=== PATIENT | male | born 1975 | race Caucasian/White ===

== ENCOUNTER 2016-09-22 10:56 | Inpatient (IN) | payer MEDICAID ==
[~2016-09-22] VITALS: Ht 167.6 cm; Wt 70.8 kg
[2016-09-22] MEDS ORDERED: SOD CHLORIDE 0.9% 500 ML IV STA (11:19)
[2016-09-22] MEDS ORDERED: LIDOCAINE/MYLANTA 40 ML BTL PO STA (11:19)
[2016-09-22] MEDS ORDERED: morphine 4 MG/ML VIAL IV STA (11:19)
[2016-09-22] MEDS ORDERED: ONDANSETRON 4 MG INJ IV STA ×2 (11:19→12:24)
[2016-09-22] MEDS ORDERED: FAMOTIDINE 20 MG INJ IV STA (11:19)
[2016-09-22] MEDS ORDERED: BELLADONNA/PHENOBARBITAL TAB PO STA (11:19)
--- NOTE | 2016-09-22 11:34 | ERD ---
ER Documentation Chief Complaint Date/Time DATE: 09/22/16 TIME: 11:31 Chief Complaint chest pain radiates to the back and abdominal pain started 2 days ago HPI 41-year-old male no significant past medical history other than GERD who presents to the emergency room with epigastric abdominal pain radiating to the back. The patient describes greater than 1 year of the symptoms that is intermittent and usually exacerbated by eating food. Patient states that most days he has this discomfort however it has been worse over the last several days. He denies any chest pain and I believe this was a communication error at triage. He states the pain is to the epigastrium and left upper quadrant and radiating to the back. He describes it as moderate, constant. He denies any numbness or tingling or other abdominal pain, no hematemesis or melena. No exertional symptoms no pleuritic pain and no shortness of breath. ROS All systems reviewed and are negative except as per history of present illness. Medications Home Meds Reported Medications Omeprazole* (Omeprazole*) 40 Mg Capsule., 40 MG PO DAILY, #30 CAP 09/22/16 FmHx Family History: No coronary disease, No diabetes Physical Exam Vitals Vital Signs Date Time Temp Pulse Resp B/P Pulse Ox O2 Delivery O2 Flow Rate FiO2 09/22/16 13:56 61 13 104/70 100 Room Air 09/22/16 11:22 72 21 117/65 100 Room Air 09/22/16 11:03 98.5 86 22 155/87 100 Physical Exam General: Well developed, well nourished, slightly uncomfortable holding epigastrium Head: Normocephalic, atraumatic. Eyes: Pupils equally reactive, EOM intact ENT: Moist mucous membranes Neck: Supple, no lymphadenopathy Respiratory: Lungs clear bilaterally, no distress Cardiovascular: RRR, no murmurs, rubs, or gallops Abdominal: Soft, very mild epigastric tenderness without rebound or guarding, negative Vegas sign, no tenderness to McBurney's point non-distended, no peritoneal signs, no pulsatile mass : Deferred MSK: No edema, no unilateral swelling, 5/5 strength Neurologic: Alert and oriented, moving all extremities, normal speech, no focal weakness, no cerebellar signs Skin: No rash Psych: Normal mood Result Diagram: 5/20/17 0922 5/20/17 0922 Results 24 hrs Laboratory Tests Test 09/22/16 09:22 White Blood Count 3.910^3/ul Red Blood Count 5.0410^6/ul Hemoglobin 15.2g/dl Hematocrit 44.2% Mean Corpuscular Volume 87.7fl Mean Corpuscular Hemoglobin 30.2pg Mean Corpuscular Hemoglobin Concent 34.4g/dl Red Cell Distribution Width 11.9% Platelet Count 83092^3/UL Mean Platelet Volume 10.1fl Neutrophils % 48.6% Lymphocytes % 42.3% Monocytes % 7.3% Eosinophils % 1.3% Basophils % 0.5% Nucleated Red Blood Cells % 0.0/100WBC Neutrophils # 1.910^3/ul Lymphocytes # 1.610^3/ul Monocytes # 0.310^3/ul Eosinophils # 0.110^3/ul Basophils # 0.010^3/ul Nucleated Red Blood Cells # 0.010^3/ul Sodium Level 140mmol/L Potassium Level 3.7mmol/L Chloride Level 102mmol/L Carbon Dioxide Level 25mmol/L Anion Gap 17 Blood Urea Nitrogen 9mg/dl Creatinine 0.86mg/dl Glucose Level 87mg/dl Calcium Level 9.6mg/dl Total Bilirubin 1.0mg/dl Direct Bilirubin 0.00mg/dl Indirect Bilirubin 1.0mg/dl Aspartate Amino Transf (AST/SGOT) 22IU/L Alanine Aminotransferase (ALT/SGPT) 34IU/L Alkaline Phosphatase 65IU/L Troponin I < 0.012ng/ml Total Protein 7.3g/dl Albumin 4.6g/dl Globulin 2.70g/dl Albumin/Globulin Ratio 1.70 Lipase 87U/L Current Medications Medications (Trade) Dose Ordered Sig/Subhash Route PRN Reason Start Time Stop Time Status Last Admin Dose Admin Sodium Chloride (NS) 500 ml @ 500 mls/hr Q1H STAT IV 09/22/16 11:19 09/22/16 12:18 DC 09/22/16 11:34 Morphine Sulfate (morphine) 4 mg ONCE STAT IV 09/22/16 11:19 09/22/16 11:23 DC 09/22/16 11:34 Ondansetron HCl (Zofran Inj) 4 mg ONCE STAT IV 09/22/16 11:19 09/22/16 11:23 DC 09/22/16 11:33 Famotidine (Pepcid Iv) 20 mg ONCE STAT IV 09/22/16 11:19 09/22/16 11:23 DC 09/22/16 11:34 Miscellaneous Medication (Gi Cocktail (2)) 40 ml ONCE STAT PO 09/22/16 11:19 09/22/16 11:23 DC 09/22/16 11:34 Belladonna/ Phenobarbital () 2 tab ONCE STAT PO 09/22/16 11:19 09/22/16 11:23 DC 09/22/16 11:35 Hydromorphone HCl (Dilaudid) 1 mg ONCE STAT IV 09/22/16 12:24 09/22/16 12:26 DC 09/22/16 12:42 Ondansetron HCl (Zofran Inj) 4 mg ONCE STAT IV 09/22/16 12:24 09/22/16 12:26 DC 09/22/16 12:42 IV Flush 10 ml 10 ml STK-MED ONCE .ROUTE 09/22/16 12:56 09/22/16 12:57 DC Sodium Chloride (NS) 100 ml @ ud STK-MED ONCE .ROUTE 09/22/16 12:56 09/22/16 12:57 DC Iohexol (Omnipaque 300mg/ ml) 150 ml STK-MED ONCE .ROUTE 09/22/16 12:56 09/22/16 12:57 DC Ondansetron HCl (Zofran Inj) 4 mg ER BRIDGE PRN IV NAUSEA AND/OR VOMITING 09/22/16 15:30 09/23/16 15:29 Acetaminophen (Tylenol Tab) 650 mg ER BRIDGE PRN PO MILD PAIN/FEVER 09/22/16 15:30 09/23/16 15:29 Procedures/MDM EKG, MONITORS, & DIAGNOSTIC IMAGING: EKG: I reviewed and interpreted a 12-lead EKG. Rhythm: Normal sinus rhythm Ectopy: None Intervals: No abnormalities ST segments: No elevations or depressions T waves: No contiguous inversions Chest x-ray: I reviewed and interpreted a 1 view of the chest Mediastinum: No enlargement Cardiac silhouette: No cardiomegaly Airspace: Clear lung nazario bilaterally without evidence of pneumothorax Bones: No evidence of fracture CTA IMPRESSION: 1. No evidence of aortic dissection or aortic aneurysm. 2. 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 Recommend coronary catheterization for further evaluation. The findings were discussed with Dr. Aramis Jaeger on 09/22/2016 at 02:00 p.m. RPTAT: [facility] LAB INTERPRETATION: Negative troponin MEDICAL DECISION MAKING: The patient presents with greater than 1 year of epigastric abdominal pain radiating to the back that is usually postprandial. Worsening symptoms in a similar location and character today. The patient denies any chest pain. He denies any exertional symptoms. There is an error in triage documentation patient does not have chest pain. I do not believe this is cardiogenic in nature. The patient has no signs or symptoms concerning for acute vascular catastrophe such as aortic dissection or aneurysm. The patient has no clinical signs of perforated ulcer or perforated viscus, no indication for CT imaging. An upright chest would be appropriate. This is most consistent with likely peptic ulcer disease, dyspepsia. Consider possible pancreatitis of the patient states that he is not a drinker. The patient will benefit from GI cocktail, laboratory testing and reassessment with serial abdominal exams. ER COURSE: The patient still had persistent symptoms and pain. Some of the same to be behavioral and only when the family was around. However given his pain out of proportion CTA of the chest abdomen and pelvis was ordered. The patient CTA revealed an aneurysm of a portion of the LAD with possible fistula with the pulmonary system. It is unclear whether this is truly causing the patient's symptoms however this abnormality warrants further investigation and likely interventional cardiology consultation. I spoke to Dr. Mendoza, on-call for interventional cardiology. He thinks this is unlikely to be related to the patient's symptoms and does not require emergent intervention. However, given the findings at this time, the patient's persistence of symptoms I believe inpatient hospitalization for formal cardiology consultation and evaluation would be most appropriate. The patient is agreeable. His symptoms are improving. At this time I do not believe there is indication for aspirin. The risks may outweigh the benefits. Continue to monitor. I kept the patient and/or family informed of laboratory and diagnostic imaging results throughout the emergency room course. DISPOSITION PLAN: Telemetry admission for evaluation of coronary artery aneurysm CONSULTATION: Accepting care team and consultations: I discussed the current laboratory data, diagnostic imaging and emergency care provided. Admitting team: Dr. Gant Admitting team indication: Insurance directed Departure Diagnosis: Primary Impression: Epigastric abdominal pain Additional Impression: Coronary artery aneurysm Condition: Stable ARAMIS JAEGER MD September 22, 2016 11:34
[2016-09-22 11:40] LABS: ADD SCAN DIFF NO
[2016-09-22 11:45] LABS: BASOPHILS % 0.5 % (0.0-2.0); EOSINOPHILS # 0.1 10^3/ul (0.0-0.5); EOSINOPHILS % 1.3 % (0.0-7.0); HEMATOCRIT 44.2 % (42.0-52.0); HEMOGLOBIN 15.2 g/dl (14.0-18.0); LYMPHOCYTES # 1.6 10^3/ul (0.8-2.9); LYMPHOCYTES % 42.3 % (15.0-51.0); MEAN CORPUSCULAR HEMOGLOBIN 30.2 pg (29.0-33.0); MEAN CORPUSCULAR HGB CONC 34.4 g/dl (32.0-37.0); MEAN CORPUSCULAR VOLUME 87.7 fl (82.0-101.0); MEAN PLATELET VOLUME 10.1 fl (7.4-10.4); MONOCYTE # 0.3 10^3/ul (0.3-0.9); MONOCYTES % 7.3 % (0.0-11.0); NEUTROPHIL # 1.9 10^3/ul (1.6-7.5); NEUTROPHILS % 48.6 % (39.0-77.0); PLATELET COUNT 191 10^3/UL (140-415); RED BLOOD COUNT 5.04 10^6/ul (4.70-6.10); RED CELL DISTRIBUTION WIDTH 11.9 % (11.5-14.5); WHITE BLOOD COUNT 3.9 10^3/ul (4.8-10.8)
--- NOTE | 2016-09-22 11:51 | RADRPT ---
PROCEDURE: XR Chest. CLINICAL INDICATION: Pain TECHNIQUE: Single frontal chest x-ray. COMPARISON: None. FINDINGS: No acute infiltrate, pleural effusion or pneumothorax is identified. Cardiomediastinal silhouette i s within normal limits. The osseous structures are unremarkable. IMPRESSION: 1. No evidence of acute cardiopulmonary process. RPTAT: QQ .Modesto Ruelas MD, MD Date Time Electronically viewed and signed by .Modesto Ruelas MD, on 09/22/2016 11:51 .R/
[2016-09-22 12:05] LABS: ALBUMIN 4.6 g/dl (3.3-4.9); CHLORIDE 102 mmol/L (97-110)
[2016-09-22 12:06] LABS: POTASSIUM 3.7 mmol/L (3.5-5.1); SODIUM 140 mmol/L (135-144)
[2016-09-22 12:08] LABS: ALKALINE PHOSPHATASE 65 IU/L (42-121); ANION GAP 17 (8-16); ASPARTATE AMINO TRANSFERASE 22 IU/L (15-46); BLOOD UREA NITROGEN 9 mg/dl (7-20); CARBON DIOXIDE 25 mmol/L (21-31); CREATININE 0.86 mg/dl (0.61-1.24); GLUCOSE 87 mg/dl (70-220); TOTAL PROTEIN 7.3 g/dl (6.1-8.1)
[2016-09-22 12:09] LABS: ALANINE AMINOTRANSFERASE 34 IU/L (13-69); CALCIUM 9.6 mg/dl (8.4-10.2)
[2016-09-22 12:19] LABS: TROPONIN-I < 0.012 ng/ml (0.00-0.12)
[2016-09-22] MEDS ORDERED: HYDROmorphONE 1 MG/ML SYG IV STA (12:24)
[2016-09-22] MEDS ORDERED: OMEP40CA6 PO (12:44)
[2016-09-22] MEDS ORDERED: IOHEXOL 300MG/ML 150 ML BTL ONE (12:56)
[2016-09-22] MEDS ORDERED: SOD CHLORIDE 0.9% 100 ML ONE (12:56)
--- NOTE | 2016-09-22 14:13 | RADRPT ---
PROCEDURE: CT angiogram chest, abdomen, and pelvis. CLINICAL INDICATION: Chest/back pain TECHNIQUE: CT angiogram of the thoracic and abdominal aorta was acquired in the early angiographic phase after the uneventful administration of 120 ml Omnipaque 300. One or more of the following d ose reduction techniques were used: Automated exposure control, adjustment of the mA and/or kV acco rding to patient size, use of iterative reconstruction technique. The total exam CTDI = 14.08, 8.4 mGy and the DLP equals 733.21 mGy-cm. COMPARISON: None available FINDINGS: Vascular: Cardiac: There are dilated conal branches off of the left and right coronary artery . This is most focally prominent on the left with a 1.5 x 1.2 x 1.4 cm focal aneurysmal dilatation of a conal branc h of the left anterior descending artery with possible associated fistula to the main pulmonary funmi ry (imaging 56 of series 3 and image 33 of series 601). Thoracic aorta: Normal in caliber. No evidence of dissection or aneurysm. Abdominal aorta: Normal in caliber. No evidence of dissection or aneurysm. The celiac, superior mesenteric, inferior mesenteric arteries: Patent without stenosis. Renal arteries: Single, widely patent renal arteries bilaterally. Large collateral seen: None. Visualized portions of the femoral arteries are also unremarkable. Chest: The lungs are clear. No focal opacification, effusion, pneumothorax, edema, or nodules are seen. M inimal scarring only is seen in the lung bases bilaterally. There is no acute infiltrate. The medi astinum is unremarkable without evidence for mass or lymphadenopathy. The heart size is normal wi thout evidence for pericardial thickening or effusion. The axillary regions, subpectoral regions, and supraclavicular regions are all unremarkable. Imagin g obtained through the upper abdomen reveals no acute abnormality. The surrounding osseous structur es are remarkable for mild degenerative spondylosis of the spine. No osteolytic or osteoblastic le odalys is detected. Abdomen: Lung bases are clear. Heart is normal in size without pericardial thickening or effusion. Liver is normal in size and attenuation without focal lesion on this angiographic phase. Spleen is normal in size. Gallbladder Pancreas and adrenal glands are unremarkable. Kidneys show cortical medullary differentiation. There is no hydronephrosis. No calculi are seen. There is no dilated bowel. Appendix is unremarkable. There is no fluid or thickening of the small bowel mesentery. No retroperitoneal mass or lymphadenopathy. The warren hepatis region is clear. No fluid collection is identified. Pelvis: Pelvic organs are unremarkable. The pelvic sidewalls and inguinal regions are clear. No free fluid is seen. There is a small fat-containing left inguinal hernia. IMPRESSION: 1. No evidence of aortic dissection or aortic aneurysm. 2. 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 Recommen d coronary catheterization for further evaluation. The findings were discussed with Dr. Aramis Jaeger on 09/22/2016 at 02:00 p.m. RPTAT: JJ .Alec Field MD, Date Time Electronically viewed and signed by .Alec Field MD, on 09/22/2016 14:12 .A/
[2016-09-22] MEDS ORDERED: ACETAMINOPHEN 325 MG TAB PO PRN (15:30)
[2016-09-22] MEDS ORDERED: ONDANSETRON 4 MG INJ IV PRN (15:30)
[2016-09-22 17:00] VITALS: BP 123/91; PULSE 62; RESP 16
[2016-09-22 17:44] VITALS: PULSE 50
[2016-09-22 18:06] VITALS: Ht 167.6 cm; Wt 70.8 kg
[2016-09-22 18:14] VITALS: PULSE 50
--- NOTE | 2016-09-22 18:59 | HP ---
Date/Time of Note Date/Time of Note DATE: 09/22/16 TIME: 18:26 Assessment/Plan VTE Prophylaxis VTE Prophylaxis Intervention: SCD's Assessment/Plan Assessment/Plan - Epigastric abdominal pain - none at present - chest pain- r/o acute coronary syndrome. - cardiology consult- Dr He notified - cont. 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 -GERD -Protonix 40 mg p.o. twice daily Dw Dr Burns HPI/ROS Admit Date/Time Admit Date/Time September 22, 2016 at 15:27 Hx of Present Illness IChief Complaint- chest pain radiates to the back and abdominal pain x 2 days ago HPI This is a 41-year-old male with no significant past medical history other than GERD who was admitted with epigastric abdominal pain radiating to the back. Patient stated having these symptoms-on and off more than 1 year and exacerbated by eating food. Patient complains of some abdominal discomfort worse what he believes to be from his epigastric pain radiating to the back that is moderate and constant in nature. He denies any shortness of breath , pleuritic pain dizziness, palpitations, headache, numbness or tingling or other abdominal pain, no hematemesis or melena. During assessment patient's family is present. All questions answered. Patient is cooperating for exam. Patient got admitted under Dr. Burns on telemetry floor. Cardiology has been notified- notified ROS All systems reviewed and are negative except as per history of present illness. Medications Home Meds Reported Medications Omeprazole* (Omeprazole*) 40 Mg Capsule., 40 MG PO DAILY, #30 CAP 09/22/16 ROS Cardiovascular: chest pain Gastrointestinal: nausea, other (Epigastric pain), pain Genitourinary: no complaints Musculoskeletal: no complaints Skin: no complaints PMH/Family/Social Family History Significant Family History: no pertinent family hx, other (FmHx) Social History Smoking Status: Former smoker Exam/Review of Systems Vital Signs Vitals Vital Signs Date Time Temp Pulse Resp B/P Pulse Ox O2 Delivery O2 Flow Rate FiO2 09/22/16 18:14 50 09/22/16 16:06 20 115/73 100 Room Air 09/22/16 11:03 98.5 Exam Constitutional: alert, oriented Psych: nl mood/affect Eyes: EOMI, nl sclera ENMT: nl external ears & nose Neck: non-tender Respiratory: clear to auscultation Cardiovascular: nl pulses Gastrointestinal: non-tender, other (Soft, very mild epigastric tenderness without rebound or guarding, Vegas sign negative, no tenderness to McBurney's point non-distended, ), soft Musculoskeletal: nl extremities to inspection Extremities: normal pulses Neurological: nl mental status, nl speech Labs Result Diagram: 09/22/1692109/22/16921 Procedures Procedures EKG Rhythm: Normal sinus rhythm Ectopy: None Intervals: No abnormalities ST segments: No elevations or depressions T waves: No contiguous inversions Chest x-ray: Mediastinum: No enlargement Cardiac silhouette: No cardiomegaly Airspace: Clear lung nazario bilaterally without evidence of pneumothorax Bones: No evidence of fracture CTA IMPRESSION: 1. No evidence of aortic dissection or aortic aneurysm. 2. 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 Recommend coronary catheterization for further evaluation JACQUELIN VAZQUEZ September 22, 2016 18:42
[2016-09-22] MEDS ORDERED: ONDANSETRON 4 MG TAB PO PRN (19:00)
[2016-09-22] MEDS ORDERED: morphine 2 MG INJ IV PRN (19:00)
[2016-09-22 20:09] VITALS: BP 107/59; RESP 20
[2016-09-22 20:20] VITALS: PULSE 59
[2016-09-23] VITALS (12 sets, daily range): BP systolic 97–117; BP diastolic 50–63; PULSE 49–81; RESP 18–20
[2016-09-23 04:52] LABS: CHOL/HDL RATIO 3.4 RATIO; IRON 83 ug/dl (35-150)
[2016-09-23 04:56] LABS: ALBUMIN 3.7 g/dl (3.3-4.9); ALBUMIN/GLOBULIN RATIO 1.48; BILIRUBIN,INDIRECT 0.9 mg/dl (0-1.1); BILIRUBIN,TOTAL 0.9 mg/dl (0.2-1.3); CALCIUM 9.2 mg/dl (8.4-10.2); TOTAL PROTEIN 6.2 g/dl (6.1-8.1)
[2016-09-23 05:02] LABS: TOTAL IRON BINDING CAPACITY 259 ug/dl (241-421)
[2016-09-23] MEDS: PANTOPRAZOLE (EC) 40 MG TAB PO SCH (05:47)
[2016-09-23] MEDS: SOD CHLORIDE 0.9% 1,000 ML IV SCH (09:58)
[2016-09-23] MEDS: ACETAMINOPHEN 325 MG TAB PO PRN (18:49)
[2016-09-24] VITALS (13 sets, daily range): BP systolic 91–109; BP diastolic 51–63; PULSE 45–70; RESP 16–20
[2016-09-24] MEDS: SOD CHLORIDE 0.9% 1,000 ML IV SCH ×3 (00:04→17:28)
[2016-09-24] MEDS: PANTOPRAZOLE (EC) 40 MG TAB PO SCH (05:41)
--- NOTE | 2016-09-24 06:57 | CONS ---
DATE OF ADMISSION: 09/22/2016 DATE OF CONSULTATION: 09/23/2016 TYPE OF CONSULTATION: Cardiology. REFERRING PHYSICIAN: Jared Abbott and Dr. Beckham. REASON FOR CONSULTATION: Chest pain, abnormal coronary anatomy. CHIEF COMPLAINT: Abdominal pain. HISTORY OF PRESENT ILLNESS: Thank you for asking ____ the patient with the ER physician, Regulo Abbott. This is a 41-year-old gentleman with no past cardiac history with history of what appear ed to be reflux, who came to emergency room complaining of abdominal pain. Patient complained of ep igastric and left upper abdominal pain. It has been going on for a year, nonexertional, is probably worse with food. As part of a workup in the emergency room for unclear reasons to me, the patient had a CT pulmonary angiogram which showed no evidence of aortic dissection, aortic aneurysm. There is a 1.5 ____1.21 ____ cm focal aneurysmal dilatation of the ____ branch of the LAD with question of associated fistula to the main pulmonary artery. Chest x-ray has shown no evidence of acute cardiopulmonary disease. PAST MEDICAL HISTORY: As above. SOCIAL HISTORY: He does not smoke or drink, has quit smoking many years ago. FAMILY HISTORY: Patient's uncle with cardiac disorder and age 75. ALLERGIES: NO REPORTED ALLERGY. MEDICATIONS AT HOME: PPI only. REVIEW OF SYSTEMS: Denies all other except for above-mentioned, ____ exercise ____. PHYSICAL EXAMINATION: VITAL SIGNS: Temperature 97.9, heart rate 57, blood pressure 107/59, respiration rate of 18, satura ting 95%. HEENT: Normocephalic, atraumatic. Pupils are equal. CARDIOVASCULAR: Bradycardia. PULMONARY: No wheezes. GASTROINTESTINAL: Soft, nontender. EXTREMITIES: With no significant edema. NEUROLOGIC: Awake and alert. PSYCHIATRIC: Calm, pleasant. LABORATORY: Troponin is negative. Sodium 139, potassium 4, BUN of 12, creatinine 1, glucose of 91, LDL 61, HDL 28, TSH 2.37. ELECTROCARDIOGRAM: Showed atrial ____ rhythm with early repolarization. ASSESSMENT AND PLAN: 1. Abdominal ____ chest pain, appeared to be nonanginal, appeared to be gastrointestinal-related. 2. Abnormal CT pulmonary angiogram with possible coronary aneurysm. 3. Most likely gastric reflux disease/gastritis. 4. Sinus bradycardia, appear to be asymptomatic. RECOMMENDATIONS: I will order a CT coronary angiogram to better define the coronary anatomy. Tmio nue risk factor modification. GI workup as per internal medicine. Echocardiogram will be ordered a s well. Dictated By: OCTAVIA FAYE MD AV/MOIRA Conf#: [id number] DID#: [id number] CC: KARTHIK BECKHAM MD; JARED ABBOTT NP;*EndCC*
[2016-09-24 07:52] LABS: ADD SCAN DIFF NO
[2016-09-24 08:00] LABS: BASOPHILS % 0.5 % (0.0-2.0); EOSINOPHILS % 4.2 % (0.0-7.0); HEMATOCRIT 41.2 % (42.0-52.0); HEMOGLOBIN 13.7 g/dl (14.0-18.0); LYMPHOCYTES % 35.2 % (15.0-51.0); MEAN CORPUSCULAR HEMOGLOBIN 30.3 pg (29.0-33.0); MEAN CORPUSCULAR HGB CONC 33.3 g/dl (32.0-37.0); MEAN CORPUSCULAR VOLUME 91.2 fl (82.0-101.0); MEAN PLATELET VOLUME 10.8 fl (7.4-10.4); MONOCYTES % 8.7 % (0.0-11.0); NEUTROPHILS % 51.4 % (39.0-77.0); PLATELET COUNT 170 10^3/UL (140-415); RED BLOOD COUNT 4.52 10^6/ul (4.70-6.10); RED CELL DISTRIBUTION WIDTH 11.9 % (11.5-14.5); WHITE BLOOD COUNT 3.8 10^3/ul (4.8-10.8)
[2016-09-24 08:01] LABS: EOSINOPHILS # 0.2 10^3/ul (0.0-0.5); LYMPHOCYTES # 1.3 10^3/ul (0.8-2.9); MONOCYTE # 0.3 10^3/ul (0.3-0.9)
[2016-09-24 08:26] LABS: ALBUMIN 3.6 g/dl (3.3-4.9)
[2016-09-24 08:27] LABS: POTASSIUM 3.8 mmol/L (3.5-5.1)
[2016-09-24 08:29] LABS: ALBUMIN/GLOBULIN RATIO 1.38; BILIRUBIN,INDIRECT 0.4 mg/dl (0-1.1); BILIRUBIN,TOTAL 0.4 mg/dl (0.2-1.3); CREATININE 0.97 mg/dl (0.61-1.24); TOTAL PROTEIN 6.2 g/dl (6.1-8.1)
[2016-09-24] MEDS: ACETAMINOPHEN 325 MG TAB PO PRN (08:41)
[2016-09-24 09:10] LABS: CALCIUM 8.9 mg/dl (8.4-10.2)
[2016-09-24] MEDS ORDERED: NITROGLYCERIN AEROSOL (4.9 GM) ONE ×2 (13:06→17:25)
[2016-09-24] MEDS ORDERED: SOD CHLORIDE 0.9% 100 ML ONE (13:22)
[2016-09-24] MEDS ORDERED: IOHEXOL 100 ML ONE (13:22)
[2016-09-24] MEDS ORDERED: IOHEXOL 350MG/ML 50 ML BTL ONE (13:23)
--- NOTE | 2016-09-24 16:08 | RADRPT ---
PROCEDURE: CTA OF THE HEART AND CORONARY ARTERIES WITH CONTRAST CT CALCIUM SCORE CLINICAL INDICATION: Chest pain, abnormal examination of the coronary arteries. COMPARISON: No previous relevant images are available for comparison. TECHNIQUE: CT calcium score performed without intravenous contrast. Multiphasic ECG-gated volumetri c acquisition from the ascending aorta to the diaphragm performed with intravenous contrast on a hig h-resolution multi detector scanner with multiphasic reconstructions. Multiplanar reconstructions, t hree-dimensional reconstructions, as well as maximal intensity projection images are produced and re viewed. One or more of the following dose reduction techniques were used: Automated exposure control ; Adjustment of the mA and/or kV according to patient size; Use of iterative reconstruction techniqu e; ECG dose modulation. CTDI = 8, 29, 75 mGy. DLP = 1532 mGy-cm. Stenosis classification of vessels greater than 1.5 mm in diameter: None0% Minimal1-24% Gabw35-68% Jadnwmix64-27% Lrraau86-87% Xforzrgw375% (When a vessel appears focally occluded with distal reconstitution there may be trac e patency which is below the resolution of the examination or collateral pathways may exist.) CONTRAST: 100 mL of Omnipaque 350 intravenously without adverse event. FINDINGS: CORONARY CT ANGIOGRAM: Overall quality of the CT angiographic examination is excellent. Normal origins of the coronary arteries are present. The coronary artery system is right dominant. Total calcium score: 0 Right Coronary Artery: Widely patent without focal irregularity, mural plaque, or significant stenos is. Dilated coronal branch measuring up to 6.5 mm arises from the origin of the right coronary arter y which anastomoses with left coronal branch vessels anterior to the main pulmonary artery with fist ulous connection to the proximal main pulmonary arterial trunk. The acute marginal branch enhances normally. Posterior descending and posterior lateral coronary artery branches are widely patent. Left Main Coronary Artery: Widely patent without focal irregularity, mural plaque, or significant st enosis. A small branch vessel measuring up to approximately 0.5 mm arises just distal to the ostium of the vessel and communicates with the arcade of collaterals communicating with the main pulmonary artery anteriorly. Left Anterior Descending Coronary Artery: No evidence of atherosclerotic changes or focal stenoses. A dilated collateral vessel measuring up to 3.5 mm arises from the proximal segment of the vessel wi th multiple divisions anastomosing with the dilated right coronal branch and also demonstrating at l east two fistulous connections with the main pulmonary artery anteriorly. One of these divisions co ntains a focal aneurysm measuring 1.6 cm in diameter. Visualized septal and diagonal branches: Widely patent without focal irregularity, mural plaque, or significant stenosis. Left Circumflex Coronary Artery: Widely patent without focal irregularity, mural plaque, or signific ant stenosis. Visualized obtuse marginal branches: Widely patent throughout, without focal significant stenosis. Normal appearance of the pericardium. No pericardial effusion. Normal appearing trileaflet aortic valve. Normal appearance of the mitral valve. There appears to be a 3 mm x 1 mm ventricular septal defect of the inferior segment of the mid porti on of the septum seen only on diastolic phase images. Left atrial appendage is well opacified. No evidence of intracardiac mass or thrombus. EXTRACARDIAC FINDINGS: Thoracic aorta: Normal caliber. Pulmonary vessels: Normal caliber pulmonary arteries. No evidence of central filling defect. Conven tional pulmonary venous return. Chest: The visualized lung parenchyma is unremarkable. No mediastinal lymphadenopathy. Abdomen: Incidental imaging of the upper abdomen is unremarkable. IMPRESSION: Total calcium score 0 No evidence of coronary artery calcified or noncalcified atherosclerotic changes. Normal origins and course of the coronary arteries. 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 Contributing vessels are the right coronal branch, left anterior descending coronary branch, and a small branch from the proximal left main coronary artery. 1.6 cm aneurysm arising from the aneurysmal arcade to the left of the main pulmonary artery. No evidence of abnormal wall thickening is seen to suggest that there is an acute inflammatory proce ss contributing to these findings. Conventional coronary angiography suggested for further evaluati on of these fistulas. Recommend correlation as to possible prior inflammatory process such as Kawasa ki disease. Small apparent ventricular septal defect measuring approximately 3 x 1 mm involving the inferior por tion of the interventricular septum at the mid level. Recommend correlation with recent echocardiog kathryn. RPTAT: AADD .Leonardo Lozano MD, Date Time Electronically viewed and signed by .Leonardo Lozano MD, on 09/24/2016 16:08 .B/
--- NOTE | 2016-09-24 17:36 | RADRPT ---
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 Physician: JACQUELIN VAZQUEZ Quality: Adequate Procedures: Transthoracic echocardiogram with complete 2D, M-Mode, and doppler examination. Indications: Chest Pain. 2D/M Mode Doppler Measurement Value Normal Ranges Measurement Value Normal Ranges LVIDd 2D 4.0 3.5 - 5.6 cm AV Peak [place] 1.0 m/sec LVIDs 2D 2.6 2.1 - 4.1 cm AV Peak PG 4.3 mmHg LVPWd 2D 0.8 0.6 - 1.1 cm LVOT Peak [place] 1.0 m/sec IVSd 2D 0.8 0.6 - 1.1 cm LVOT Peak PG 3.8 mmHg AoR Diam 2D 1.4 2.0 - 3.7 cm MV E Peak [place] 0.9 m/sec EDV 2D 70.9 cm3 MV A Peak [place] 0.4 m/sec ESV 2D 18.6 cm3 MV E/A 2.5 LA Dimen 2D 3.5 2.3 - 4.0 cm MV Decel Time 283 msec MV Decel Davie 3 MV E/A 2.5 Findings Left Ventricle: Normal left ventricular systolic function. Normal left ventricular cavity size. Normal left ventricular wall thickness. Ejection fraction is visually estimated at 65 %. Abnormal Diastolic Function. Right Ventricle: Normal right ventricular size. Normal right ventricular systolic function. Left Atrium: The left atrium is normal in size. Right Atrium: The right atrium is normal in size. Mitral Valve: Mitral valve leaflets appear mildly thickened. Trace mitral regurgitation. Aortic Valve: Normal appearance of the aortic valve. No significant aortic stenosis or insufficiency. Tricuspid Valve: Normal appearance and function of the tricuspid valve with trace physiologic regurgitation. Pulmonic Valve: Pulmonic valve not well visualized. No evidence of pulmonic regurgitation. Pericardium: Normal pericardium with no significant pericardial effusion. Aorta: Normal aortic root. IVC: Normal size and normal respiratory collapse consistent with normal right atrial pressure. Conclusions 1.Normal left ventricular systolic function. Normal left ventricular cavity size. Normal left ventricular wall thickness. Ejection fraction is visually estimated at 65 %. Abnormal Diastolic Function. 2.Mitral valve leaflets appear mildly thickened. Trace mitral regurgitation. 3.Normal appearance of the aortic valve. No significant aortic stenosis or insufficiency. 4.Normal appearance and function of the tricuspid valve with trace physiologic regurgitation. Electronically Signed By: Raffy He 24-Sep-2016 17:35:47 -0700 Patient Name: ROMY PENNY Study Date: 23-Sep-2016 [id number]
--- NOTE | 2016-09-24 18:29 | PN ---
DATE: 09/24/2016 SUBJECTIVE: Followup. Patient was admitted with chest pain. The patient currently denies any ches t pain, denies any left shoulder pain. The patient denies any shortness of breath. The patient sta yari she has left upper quadrant abdominal pain with nausea. Denies any vomiting. Denies any fever. Denies any chills. OBJECTIVE: VITAL SIGNS: Temperature is 98.5, pulse is 69, blood pressure 104/55, respiratory rate 18, oxygen s aturation is 98% on room air. GENERAL: Well-developed, well-nourished male in no acute distress. HEENT: Atraumatic, normocephalic. LUNGS: Clear bilaterally. There is no rhonchi, wheezes, rales noted. HEART: Normal S1, S2. No murmurs, gallops, clicks, rubs noted. ABDOMEN: Flat, soft, nondistended, nontender. Bowel sounds present. EXTREMITIES: Legs no edema. NEUROLOGIC: The patient is awake, alert and oriented x4. LABORATORY AND DIAGNOSTIC DATA FOR TODAY: CBC: White blood cells 3.8, hemoglobin 13.7, hematocrit 41.2, platelets 170. Chemistry: Sodium 140, potassium 3.8, chloride 102, carbon dioxide 27, anion gap 15, BUN is 15, creatinine 0.97, glucose 84, calcium 8.9, AST 17, ALT is 28, alkaline phosphatase is 47. TSH is 2.3. ASSESSMENT AND PLAN: 1. Abdominal versus chest pain, rule out acute coronary syndrome. Patient is followed by Dr. Glenys campos in cardiology consultation. Troponin is negative x3. 2. 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 The patient is status post angiogr am. Continue to follow up cardiology recommendations. 3. Epigastric pain. We will ask Dr. Ramirez to see patient in gastroenterology consultation. Timo yvonnee Armando for nausea. 4. History of gastroesophageal reflux disease. Continue Protonix. 5. Small left inguinal hernia. We will continue sequential compression device for deep venous thro mbosis prophylaxis. Further recommendations based on clinical course. Plan of care discussed with Dr. Beckham. Dictated By: ANIA SWIFT CAD CAM PROGRAMMER for KARTHIK BECKHAM MD SR/NTS Conf#: [id number] [facility]#: [id number]
[2016-09-24] MEDS: SENNA TAB PO SCH (20:46)
[2016-09-25] VITALS (11 sets, daily range): BP systolic 103–109; BP diastolic 51–69; PULSE 40–72; RESP 16–19
[2016-09-25] MEDS: SOD CHLORIDE 0.9% 1,000 ML IV SCH ×3 (03:54→23:33)
[2016-09-25] MEDS: PANTOPRAZOLE (EC) 40 MG TAB PO SCH (06:00)
[2016-09-25] MEDS ORDERED: PANTOPRAZOLE (EC) 40 MG TAB PO SCH (06:00)
--- NOTE | 2016-09-25 07:35 | PN ---
DATE: 09/24/2016 CARDIOLOGY FOLLOWUP SUBJECTIVE: Discussed with the staff. The patient remains in sinus rhythm, sinus bradycardia. No chest pain or pressure. Still complains of left upper quadrant abdominal discomfort and tenderness. MEDICATIONS: Reviewed. PHYSICAL EXAMINATION: VITAL SIGNS: Temperature 98.5, heart rate of 67, blood pressure ____, respiration rate of 18, satur ating 97%. HEENT: Normocephalic, atraumatic. Thin gentleman in no acute distress. Pupils are equal. CARDIOVASCULAR: Regular rate and rhythm, no murmur appreciated. PULMONARY: With no wheezes or rhonchi. GASTROINTESTINAL: Soft, mild tenderness to palpation in the left upper quadrant. No rebound or gua rding. EXTREMITIES: No significant edema. NEUROLOGIC: Awake and alert. PSYCHIATRIC: Appears anxious, but overall pleasant. LABORATORY DATA: WBC of 3.8, hemoglobin 13.7, platelet of ____, sodium 140, potassium 3.8, BUN of 1 3, creatinine 0.97, glucose of 84. Troponin less than 0.012. CT coronary angiogram was done which shows no evidence of coronary artery calcified or noncalcified atherosclerotic changes. Normal orig in and course of the coronary arteries. Dilated V sense ____ at least 3 apparent fistulous connecti on with the main pulmonary artery. ____ vessels are the right coronal branch, left anterior descend ing artery and a small branch of the proximal left main coronary artery. 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 Small apparent ventriculoseptal defect in the inferior portion of ventricular septal at the mid-level. Echocardiogram was personally reviewe d, which shows ejection fraction of 65%. ASSESSMENT AND PLAN: 1. Abdominal pain, appeared to be non-anginal, noncardiac related. 2. 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 3. Sinus bradycardia ____. 4. Gastritis. 5. Gastroesophageal reflux disease. RECOMMENDATIONS: GI workup and treatment as per internal medicine. I have given the CT coronary an giogram report to the patient. I explained to him that although I do not believe that his current s ymptoms are related to his anomalous coronary abnormalities, I believe that he needs to be evaluated at a tertiary care center such as [facility] and [facility] who have more experience with these rare anomalies. The patient was given the information and was told that upon discharge, he needs to contact and go to tertiary care such as [facility], [facility] for further cardiac evaluation and close followup. GI workup as per internal medicine. Otherwise, no further cardiac workup is indicated at this point in this hosp ital. Dictated By: OCTAVIA FAYE MD AV/NTS Conf#: [id number] DID#: [id number] CC: ANIA SWIFT NP; KARTHIK BECKHAM MD;*EndCC*
[2016-09-25 07:46] LABS: ADD SCAN DIFF NO
[2016-09-25 07:51] LABS: BASOPHILS % 0.4 % (0.0-2.0); EOSINOPHILS # 0.2 10^3/ul (0.0-0.5); EOSINOPHILS % 3.5 % (0.0-7.0); HEMATOCRIT 44.7 % (42.0-52.0); HEMOGLOBIN 14.9 g/dl (14.0-18.0); LYMPHOCYTES # 1.4 10^3/ul (0.8-2.9); LYMPHOCYTES % 31.6 % (15.0-51.0); MEAN CORPUSCULAR HEMOGLOBIN 30.2 pg (29.0-33.0); MEAN CORPUSCULAR HGB CONC 33.3 g/dl (32.0-37.0); MEAN CORPUSCULAR VOLUME 90.5 fl (82.0-101.0); MEAN PLATELET VOLUME 10.5 fl (7.4-10.4); MONOCYTE # 0.4 10^3/ul (0.3-0.9); MONOCYTES % 7.7 % (0.0-11.0); NEUTROPHIL # 2.6 10^3/ul (1.6-7.5); NEUTROPHILS % 56.8 % (39.0-77.0); PLATELET COUNT 179 10^3/UL (140-415); RED BLOOD COUNT 4.94 10^6/ul (4.70-6.10); RED CELL DISTRIBUTION WIDTH 11.9 % (11.5-14.5); WHITE BLOOD COUNT 4.6 10^3/ul (4.8-10.8)
[2016-09-25] MEDS ORDERED: BARIUM SULF 2% 450 ML BTL (BERRY SMOOTHIE) PO ONE (08:30)
[2016-09-25 08:31] LABS: CALCIUM 9.4 mg/dl (8.4-10.2); CREATININE 0.91 mg/dl (0.61-1.24); POTASSIUM 4.5 mmol/L (3.5-5.1)
--- NOTE | 2016-09-25 08:53 | RADRPT ---
PROCEDURE: CT Abdomen and Pelvis without contrast. CLINICAL INDICATION: Abdominal pain TECHNIQUE: CT of the abdomen and pelvis was performed on a multi-detector scanner without IV contr ast. Coronal and sagittal images were reformatted from the axial data set. One or more of the foll owing dose reduction techniques were used: automated exposure control, adjustment of the mA and/or kV according to patient size, use of iterative reconstruction technique. CTDI = 8.18 mGy. DLP = 473 .63 mGy-cm. COMPARISON: CT, 09/22/2016 FINDINGS: CT abdomen: The lung bases are clear. The heart size is normal, without pericardial effusion. Layering density is present within the gallbladder, likely excreted contrast from recent prior CT. There is no ravinder cholecystic inflammation. Liver, biliary tree, pancreas, spleen, adrenal glands and kidneys are unr emarkable. No urolithiasis or obstructive uropathy is identified. The stomach is grossly unremarka ble. The aorta is of normal caliber. There is no retroperitoneal lymphadenopathy. The warren hepatis reg ion is clear. CT pelvis: No bowel obstruction, free intraperitoneal air or abscess is identified. The appendix is well visua lized and normal. No diverticulosis, diverticulitis or colitis is identified. Urinary bladder is g rossly unremarkable. No pelvic mass, free fluid or lymphadenopathy is identified. The surrounding osseous structures are remarkable for mild degenerative spondylosis at L5-S1. No os teolytic or osteoblastic lesion is detected. IMPRESSION: 1. Unremarkable CT scan of the abdomen and pelvis. 2. No mass, lymphadenopathy, or focal acute inflammatory process is identified. RPTAT: EE .Modesto Ruelas MD, Date Time Electronically viewed and signed by .Modesto Ruelas MD, MD on 09/25/2016 08:52 .R/
--- NOTE | 2016-09-25 08:54 | RADRPT ---
PROCEDURE: XR Abdomen. CLINICAL INDICATION: Left-sided abdominal pain TECHNIQUE: Single AP view of the abdomen is available for review. COMPARISON: None. FINDINGS: The bowel gas pattern is unremarkable. There is no evidence of obstruction. There are no abnormal ca lcifications overlying the urinary tracts. The osseous structures are unremarkable. IMPRESSION: 1. Unremarkable abdomen x-ray series. RPTAT: EE .Modesto Ruelas MD, MD Date Time Electronically viewed and signed by .Modesto Ruelas MD, on 09/25/2016 08:53 .R/
[2016-09-25] MEDS: SENNA TAB PO SCH ×2 (09:00→21:00)
--- NOTE | 2016-09-25 18:06 | PN ---
Date/Time of Note Date/Time of Note DATE: 09/25/16 TIME: 18:01 Assessment/Plan VTE Prophylaxis VTE Prophylaxis Intervention: SCD's Lines/Catheters IV [facility]from [facility] Peripheral IV Urinary Cath still in place: No Assessment/Plan Chief Complaint/Hosp Course Patient's complains of abdominal discomfort, denies nausea vomiting, denies chest pain denies shortness of breath. ASSESSMENT AND PLAN: - Epigastric pain. Dr. Ramirez is following in gastroenterology consultation. Continue Zofran for nausea. Pending EGD tomorrow. - Abdominal versus chest pain, rule out acute coronary syndrome. Patient is followed by Dr. He in cardiology consultation. Troponin is negative x3. 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 Per cardiology which is not the cause of patient's pain. - History of gastroesophageal reflux disease. Continue Protonix. - Small left inguinal hernia. Continue sequential compression device for deep venous thrombosis prophylaxis. Further recommendations based on clinical course. Plan of care discussed with Dr. Burns. 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 SOCIAL WORKER II-XII intact Results Result Diagram: 09/25/16 0625 09/25/16 0625 Results 24 hrs Laboratory Tests Test 09/25/16 06:25 White Blood Count 4.6 #L Red Blood Count 4.94 Hemoglobin 14.9 Hematocrit 44.7 Mean Corpuscular Volume 90.5 Mean Corpuscular Hemoglobin 30.2 Mean Corpuscular Hemoglobin Concent 33.3 Red Cell Distribution Width 11.9 Platelet Count 179 Mean Platelet Volume 10.5 H Neutrophils % 56.8 Lymphocytes % 31.6 Monocytes % 7.7 Eosinophils % 3.5 Basophils % 0.4 Nucleated Red Blood Cells % 0.0 Neutrophils # 2.6 Lymphocytes # 1.4 Monocytes # 0.4 Eosinophils # 0.2 Basophils # 0.0 Nucleated Red Blood Cells # 0.0 Sodium Level 139 Potassium Level 4.5 Chloride Level 104 Carbon Dioxide Level 29 Anion Gap 11 Blood Urea Nitrogen 9 Creatinine 0.91 Glucose Level 85 Calcium Level 9.4 Medications Medications Current Medications Ondansetron HCl (Zofran Tab) 4 mg Q6H PRN PO NAUSEA AND/OR VOMITING; Start at 19:00 Pantoprazole (Protonix Tab) 40 mg DAILY@06 PO Last administered on 09/24/16 05 :41; Admin Dose 40 MG; Start 09/23/16 at 06:00 Morphine Sulfate 2 mg 2 mg Q4H PRN IV PAIN LEVEL 6-10; Start 09/22/16 at 19:00 Sodium Chloride (NS) 1,000 ml @ 70 mls/hr [id number] IV Last administered on 09/25 09:28; Admin Dose 70 MLS/HR; Start 09/23/16 at 09:00 Acetaminophen (Tylenol Tab) 650 mg Q4H PRN PO PAIN AND OR ELEVATED TEMP Last administered on 09/24/16 08:41; Admin Dose 650 MG; Start 09/23/16 at 18:30 Senna (Senokot) 2 tab BID PO Last administered on 09/24/16 20:46; Admin Dose 2 TAB; Start 09/24/16 at 21:00 ANIA SWIFT September 25, 2016 18:06
--- NOTE | 2016-09-25 19:00 | CONS ---
DATE OF ADMISSION: 09/22/2016 DATE OF CONSULTATION: TYPE OF CONSULTATION: Gastroenterology. Dear Dr. Beckham: Thank you for asking me to see Mr. Torres in GI consultation. HISTORY OF PRESENT ILLNESS: The patient, as you know, is a 41-year-old male who has been e xperiencing upper abdominal pain for the past 1 month. However, in the past 1 week, the pain has be en getting worse and worse, usually occurs after eating food. He has taken nonspecific pkkq-vqm-irr nter medications with no relief. He has no history of vomiting blood or passing blood from the rect um. However, he did have a vomiting episode last night. He has no history of bleeding from the rectum, no diarrhea. In fact, he has got history of constipa tion. SOCIAL HISTORY: The patient does not smoke or drink, but he used to do that before. He has had a negative cardiac workup. PAST MEDICAL HISTORY: He had right knee surgery. FAMILY HISTORY: Unremarkable. PHYSICAL EXAMINATION: GENERAL: The patient is a 41-year-old old gentleman who at this time is alert, is well santiago lt. VITAL SIGNS: He is afebrile. CARDIOVASCULAR: Normal heart sounds. RESPIRATORY: Normal breath sounds. ABDOMEN: Showed unremarkable findings. LABORATORY DATA: Potassium 4.5. AST 17, ALT 28, alkaline phosphatase 47, lipase 87, which is jae l. WBC count 4600. The imaging study shows evidence of a CAT scan of the abdomen showing normal findings except stools in the colon. CLINICAL IMPRESSION: The patient presenting with history of persistent abdominal pain, no evidence of acute intra-abdominal pathology noted. Rule out peptic ulcer disease, esophagitis. Doubt cholec ystitis, doubt pancreatitis. PLAN: At this time, recommend upper endoscopy, also recommend ultrasound of the upper abdomen. Once again, I would like to thank you for this consultation. Dictated By: REYNOLD DE/MOIRA Conf#: [id number] DID#: [id number] CC: REYNOLD ARAIZA MD; KARTHIK BECKHAM MD;*EndCC*
[2016-09-26] VITALS (22 sets, daily range): BP systolic 99–110; BP diastolic 53–71; PULSE 50–71; RESP 12–26
[2016-09-26] MEDS: PANTOPRAZOLE (EC) 40 MG TAB PO SCH (05:05)
[2016-09-26 07:35] LABS: ADD SCAN DIFF NO
[2016-09-26 07:45] LABS: BASOPHILS % 0.5 % (0.0-2.0); EOSINOPHILS # 0.2 10^3/ul (0.0-0.5); EOSINOPHILS % 4.2 % (0.0-7.0); HEMATOCRIT 42.3 % (42.0-52.0); HEMOGLOBIN 14.4 g/dl (14.0-18.0); LYMPHOCYTES # 1.2 10^3/ul (0.8-2.9); LYMPHOCYTES % 30.1 % (15.0-51.0); MEAN CORPUSCULAR HEMOGLOBIN 30.6 pg (29.0-33.0); MEAN PLATELET VOLUME 10.5 fl (7.4-10.4); MONOCYTE # 0.3 10^3/ul (0.3-0.9); MONOCYTES % 8.4 % (0.0-11.0); NEUTROPHIL # 2.3 10^3/ul (1.6-7.5); NEUTROPHILS % 56.8 % (39.0-77.0); PLATELET COUNT 169 10^3/UL (140-415); RED CELL DISTRIBUTION WIDTH 11.9 % (11.5-14.5); WHITE BLOOD COUNT 4.1 10^3/ul (4.8-10.8)
[2016-09-26] MEDS ORDERED: LIDOCAINE 2% (SDV) 5 ML INJ ONE (08:10)
[2016-09-26] MEDS ORDERED: PROPOFOL 0 ML ONE (08:10)
[2016-09-26] MEDS ORDERED: PROPOFOL 20 ML ONE (08:11)
[2016-09-26] MEDS ORDERED: MIDAZOLAM 1 MG/ML 2 ML INJ ONE (08:11)
[2016-09-26 08:30] LABS: POTASSIUM 4.6 mmol/L (3.5-5.1)
[2016-09-26] MEDS ORDERED: DIPHENHYDRAMINE 50 MG INJ IV PRN (08:30)
[2016-09-26] MEDS ORDERED: METOCLOPRAMIDE 10 MG INJ IV PRN (08:30)
[2016-09-26] MEDS ORDERED: ONDANSETRON 4 MG INJ IV PRN (08:30)
[2016-09-26] MEDS ORDERED: MEPERIDINE 25 MG INJ IV PRN (08:30)
[2016-09-26 08:33] LABS: CREATININE 0.95 mg/dl (0.61-1.24)
[2016-09-26 08:34] LABS: CALCIUM 9.2 mg/dl (8.4-10.2)
[2016-09-26] MEDS: SENNA TAB PO SCH (10:00)
--- NOTE | 2016-09-26 14:02 | GILP ---
DATE OF PROCEDURE: PROCEDURE: Esophagogastroduodenoscopy. PREOPERATIVE DIAGNOSIS: The patient presenting with history of abdominal pain unresponsive to routi ne symptomatic treatment, history of vomiting, rule out peptic ulcer disease, esophagitis. POSTOPERATIVE DIAGNOSIS: Mild patchy gastritis. Biopsy was done to rule out Helicobacter pylori in fection from the antrum, the lesser curvature, and the fundus. The rest of the duodenum and the eso phagus appeared normal. DESCRIPTION OF PROCEDURE: After informed written consent was obtained, the patient was asked to lie on the left lateral side. The patient was given intravenous anesthesia by anesthesiologist. When the patient became somnolent, the Olympus video upper endoscope was introduced into the oropharynx a nd then into the esophagus. The entire esophagus appeared normal. Endoscope at this time was advan yadi into the stomach. Stomach showed evidence of a few areas of erythema indicating mild gastritis. Biopsy was done from the antrum, the lesser curvature of the fundus to rule out H pylori infection . Duodenum appeared normal up to the end of the third portion. Endoscope at this time was withdraw n, no additional abnormalities detected, and the procedure was terminated. PLAN: Recommend Pepcid 20 mg p.o. b.i.d. for 6 weeks. Dictated By: REYNOLD DE/MOIRA Conf#: [id number] DID#: [id number] CC: KARTHIK BECKHAM MD;*EndCC*
[2016-09-26] MEDS ORDERED: FAMO20TA18 NGT (17:28)
[2016-09-26] MEDS ORDERED: FAMOTIDINE 20 MG TAB NGT SCH (21:00)
--- NOTE | 2016-10-01 18:19 | DS ---
DATE OF ADMISSION: 09/22/2016 DATE OF DISCHARGE: 09/26/2016 FINAL DIAGNOSIS: 1. Gastritis per esophagogastroduodenoscopy. Abdominal pain secondary to gastritis. 2. Chest pain on admission. Acute coronary syndrome ruled out. 3. History of gastroesophageal reflux disease. 4. Small left inguinal hernia. 5. 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 BRIEF HISTORY: The patient is a 41-year-old gentleman who complains of the chest pain in the left u pper quadrant with radiation to the abdomen which started 2 days ago. The patient has a history of gastroesophageal reflux. The patient has not had significant past medical history except for GERD. Patient presented with epigastric abdominal pain radiating to the back. Patient describes one year duration of symptoms with intermittent and usually gastric pain which is intermittent and usually e xacerbated by food ingestion. The patient stated that his discomfort gets worse over the last sever al days and patient presented to the emergency room. The patient was admitted for further evaluatio n and management. However, patient underwent a CT angiogram of the chest, abdomen and pelvis which was negative for any evidence of aortic dissection or aortic aneurysm; however, the notion of focal aneurysmal dilatation of the coronary branch of the left anterior descending artery with a questiona ble fistula to the main pulmonary artery. Chest x-ray with no evidence of acute cardiopulmonary pro cess. The patient was admitted for further evaluation and management. HOSPITAL COURSE: The patient was evaluated by Dr. He in cardiology consultation. The patient's troponin was negative x3. Patient's lipid panel also was within normal limits. TSH what was jae l and patient was given morphine and nitroglycerin p.r.n. for pain. Patient also underwent a CT of the heart and coronary artery with contrast which revealed dilated Vieussens arterial ring with at l east 3 apparent fistulous connection with the main pulmonary artery. No evidence of abnormal wall th ickening. For full report, see the report from 06/27/2016. However per cardiology recommendations, coronary anatomy abnormalities do not appear to be related to the patient's current pain and discom fort. The patient was given copy of the CTA and needs to follow up at tertiary care center such as [facility] or [facility] for further evaluation for multivessel coronary abnormalities. Subsequently, patient un derwent a GI workup. Dr. Ramirez saw patient in gastroenterology consultation. Patient underwent EG D which revealed gastritis. The patient was started on Protonix and the patient's symptoms decrease d. The patient denies any chest or epigastric pain, but was able to tolerate a regular diet well a nd the patient was discharged home. Patient's pathology for EGD was not available at that time and the patient instructed to follow up with Dr. Ramirez in gastroenterology consultation in 1 to 2 weeks to review the results of pathology. The patient was given prescription for Pepcid per Dr. Ramirez's recommendation p.o. b.i.d. for 60 days. CONDITION ON DISCHARGE: Stable. DIET: Regular. ACTIVITY: As tolerated. Plan of care was discussed with Dr. Beckham. CONDITION ON DISCHARGE: Hemodynamically stable. DIET: Regular diet. ACTIVITY: As patient tolerate interdisciplinary team established for this patient. Plan of care wa s discussed with Dr. Beckham. Dictated By: ANIA SWIFT TRANSPORT COMPANY MANAGER for KARTHIK BECKHAM MD, SR/MOIRA Conf#: [id number] DID#: [id number]
== END 2016-09-26 21:15 | disposition home or self-care (01) | DRG 392 ==
LOC: E/R 10:56 → MS4 15:27
PROVIDERS: ADMIT Internal Medicine; ATTEND Internal Medicine
PROC: 0DB78ZX Excision of Stomach, Pylorus, Via Natural or Artificial Opening Endoscopic, Diagnostic (ICD-10-PCS; principal; 2016-09-26 08:00)
DX: K29.70 Gastritis, unspecified, without bleeding (principal); I25.41 Coronary artery aneurysm; K21.9 Gastro-esophageal reflux disease without esophagitis; Z87.891 Personal history of nicotine dependence; K40.90 Unilateral inguinal hernia, without obstruction or gangrene, not specified as recurrent; R00.1 Bradycardia, unspecified; R11.10 Vomiting, unspecified; R07.9 Chest pain, unspecified
CPT/HCPCS: 36415; 71010; 71275; 74000; 74176; 75571; 75574; 75635; 80048; 80053; 80061; 83540; 83690; 84443; 84484; 85025; 88305; 88312; 93005; 93306; 96374; 96375; 96376; J1170; J2250; J2270; J2405; J7030; J7040; Q9967

== ENCOUNTER 2017-04-27 16:01 | Inpatient (IN) | payer MEDICAID ==
[~2017-04-27] VITALS: Ht 167.6 cm; Wt 69.5 kg
[~2017-04-27 16:01] MED LIST: FAMO20TA18 NGT
[2017-04-27] MEDS ORDERED: ASPIRIN 325 MG TAB PO STA (16:19)
[2017-04-27] MEDS ORDERED: NITROGLYCERIN (IC) 100 MCG/ML INJ ONE (16:29)
[2017-04-27] MEDS ORDERED: VERAPAMIL 5 MG INJ ONE (16:29)
[2017-04-27] MEDS ORDERED: FENTAnyl 50 MCG/ML VIAL ONE (16:29)
[2017-04-27] MEDS ORDERED: LIDOCAINE 1% (MDV) 20 ML INJ ONE (16:29)
[2017-04-27] MEDS ORDERED: MIDAZOLAM 1 MG/ML 2 ML INJ ONE (16:29)
[2017-04-27] MEDS ORDERED: IOHEXOL 350MG/ML 50 ML BTL ONE (16:30)
[2017-04-27] MEDS ORDERED: IODIXANOL LOCM 100 ML BTL ONE (16:30)
[2017-04-27 16:34] LABS: BASOPHILS % 0.8 % (0.0-2.0); EOSINOPHILS # 0.2 10^3/ul (0.0-0.5); EOSINOPHILS % 3.2 % (0.0-7.0); HEMATOCRIT 45.1 % (42.0-52.0); HEMOGLOBIN 15.1 g/dl (14.0-18.0); LYMPHOCYTES # 2.1 10^3/ul (0.8-2.9); LYMPHOCYTES % 41.3 % (15.0-51.0); MEAN CORPUSCULAR HGB CONC 33.5 g/dl (32.0-37.0); MEAN CORPUSCULAR VOLUME 89.5 fl (82.0-101.0); MEAN PLATELET VOLUME 9.9 fl (7.4-10.4); MONOCYTE # 0.4 10^3/ul (0.3-0.9); MONOCYTES % 7.1 % (0.0-11.0); NEUTROPHIL # 2.4 10^3/ul (1.6-7.5); NEUTROPHILS % 47.4 % (39.0-77.0); PLATELET COUNT 200 10^3/UL (140-415); RED BLOOD COUNT 5.04 10^6/ul (4.70-6.10); RED CELL DISTRIBUTION WIDTH 11.9 % (11.5-14.5)
--- NOTE | 2017-04-27 16:39 | CONS ---
Date/Time of Note Date/Time of Note DATE: 04/27/17 TIME: 16:33 Assessment/Plan Assessment/Plan Chief Complaint/Hosp Course Possible ST elevation myocardial infarction Rule out dyslipidemia Severe chest pain Recommendation Patient has already received aspirin. Given his persistent chest pain and minimal abnormality on his EKG we will take the patient for emergent heart catheterization selective right and left coronary angiography possible percutaneous coronary intervention. Risks benefits and alternatives of procedure discussed with the patient in detail. Risks include not limited to infection vascular medication bleeding of the acute [place] stroke arrhythmia at that renal failure etc. discussed with the patient. Patient consented to procedure. Further recommendation after angiogram is done. Thank you OCTAVIA FAYE MD [facility] Problems: Consultation Date/Type/Reason Admit Date/Time Date of Consultation: Apr 27, 2017 Type of Consultation: Interventional cardiology Reason for Consultation Possible STEMI Referring Provider: LEAH FORBES Hx of Present Illness Emergent interventional cardiology consultation Chief complaint chest pain Date of present illness: Thank you for his referral. History was obtained from the patient discussion with the ER physician Dr. Omer. Discussed with the staff. Is a pleasant 41- year-old gentleman with no reported past medical history who came to emergency room with complaint of severe left-sided chest pain. According to the ER patient was initially severely diaphoretic and appeared to be in severe pain. Patient points to the left side of his chest with his severe pain could not describe it well. 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 He has noted that he get dizzy and lightheaded and sometimes chest pain when he lifts heavy weights during his work. Patient is still continues to have severe 8 out of 10 chest pain. Initial EKG has shown mildly elevation in the inferior leads and kind of diffuse elevation with consistent with possible ST elevation myocardial infarction. I was called to emergently evaluate the patient and take the patient to the Medical Information Specialist. Allergies no known drug allergies Social history patient does not smoke or drink. 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 medication At Home none Family say no reported coronary artery disease. Review of system as above. Exam/Review of Systems Vital Signs Vitals Vital Signs Date Time Temp Pulse Resp B/P Pulse Ox O2 Delivery O2 Flow Rate FiO2 04/27/17 16:09 98.1 67 20 121/71 99 Exam General: in mild distress HEENT: NC/AT. pupils are equal. round. NECK: NO JVD. no stridor. CV: RRR. systolic murmur; no gallop or rubs. PULM: no wheezing or rhonchi. GI: SOFT, NT, ND, no rebound or guarding Extremity: trace B/L LE edema. no clubbing. neuro: awake and alert, OX3. Psych: anxious but pleasant rectal: deferred : normal male ECG as above Results Results 24 hrs Laboratory Tests Test 04/27/17 16:23 White Blood Count Pending Red Blood Count Pending Hemoglobin Pending Hematocrit Pending Mean Corpuscular Volume Pending Mean Corpuscular Hemoglobin Pending Mean Corpuscular Hemoglobin Concent Pending Red Cell Distribution Width Pending Platelet Count Pending Mean Platelet Volume Pending OCTAVIA FAYE MD Apr 27, 2017 16:39
[2017-04-27 16:56] LABS: INR 1.03; PROTIME 13.6 Sec (11.9-14.9); PT RATIO 1.1
[2017-04-27 17:01] LABS: ALANINE AMINOTRANSFERASE 34 IU/L (13-69); ALBUMIN 4.4 g/dl (3.3-4.9); ALBUMIN/GLOBULIN RATIO 1.46; ALKALINE PHOSPHATASE 58 IU/L (42-121); ANION GAP 15 (8-16); ASPARTATE AMINO TRANSFERASE 23 IU/L (15-46); BILIRUBIN,INDIRECT 0.9 mg/dl (0-1.1); BILIRUBIN,TOTAL 0.9 mg/dl (0.2-1.3); BLOOD UREA NITROGEN 10 mg/dl (7-20); CALCIUM 9.4 mg/dl (8.4-10.2); CARBON DIOXIDE 30 mmol/L (21-31); CHLORIDE 101 mmol/L (97-110); CREATINE KINASE 78 IU/L (23-200); CREATININE 1.15 mg/dl (0.61-1.24); GLUCOSE 92 mg/dl (70-220); SODIUM 142 mmol/L (135-144); TOTAL PROTEIN 7.4 g/dl (6.1-8.1)
--- NOTE | 2017-04-27 17:09 | ERD ---
ER Documentation Chief Complaint Chief Complaint Chest pain x 2 hr. after dinner HPI This is a 41-year-old male with a past medical history of hypertension who quit tobacco 10 years ago and indicates that he has been having chest pain that has been persistent for 2 hours. The patient stated the chest pain is a pressure- like sensation localized to the left chest wall with radiation to the back. The patient also states that he was experiencing some pain in his left arm. He has never experienced any similar pain in the past. He has had no fevers or shaking or chills. He had associated symptoms of nausea diaphoresis. He denied any coughing choking or gagging episodes. He denies shortness of breath and no recent travel. ROS All systems reviewed and are negative except as per history of present illness. Medications Home Meds Active Scripts Famotidine* (Famotidine*) 20 Mg Tablet, 20 MG NGT BID for 60 Days, TAB Prov:ANIA SWIFT 09/26/16 Allergies Allergies: Coded Allergies: No Known Allergies (Verified Allergy, Unknown, 09/22/16) PMhx/Soc History of Surgery: No Anesthesia Reaction: No Hx Neurological Disorder: No Hx Respiratory Disorders: No Hx Cardiac Disorders: No Hx Psychiatric Problems: No Hx Miscellaneous Medical Probl: No Hx Alcohol Use: No Hx Substance Use: No Hx Tobacco Use: No (quit 10 yrs ago ) Smoking Status: Former smoker Physical Exam Vitals Vital Signs Date Time Temp Pulse Resp B/P Pulse Ox O2 Delivery O2 Flow Rate FiO2 04/27/17 16:09 98.1 67 20 121/71 99 Physical Exam Constitutional:Well-developed. Well-nourished. HEENT:Normocephalic. Atraumatic.Pupils were equal round reactive to light. Moist mucous membranes.No tonsillar exudates. Neck: No nuchal rigidity. No lymphadenopathy. No posterior cervical spine tenderness or step-offs. Respiratory: Not using accessory muscles of respiration.Lungs were clear to auscultation bilaterally. No rhonchi. No rales. No wheezing. Cardiovascular: Regular rate regular rhythm.No murmurs. No rubs were appreciated.S1, S2 normal. Distal pulses are palpable 2+ bilaterally. No reproducible chest wall tenderness crepitus or ecchymosis GI: Abdomen was soft. Nontender. Non Distended. No pulsatile abdominal masses or bruits. No rebound. No guarding. Bowel sounds were present and normal. Muscle skeletal: Full range of motion of both the upper and lower extremities bilaterally.Normal muscle tone.No assymetrical calf tenderness or swelling. Skin: Mild diaphoresis. No petechia, no purpura. No lesions on the palms or the soles of the feet. No maculopapular rash. NEURO: Patient was alert, awake, orientated x3.No facial droop. Gait observed and normal with no ataxia.Speech had regular rate and rhythm. No focal neurological deficits. Result Diagram: 04/27/17 1623 Results 24 hrs Laboratory Tests Test 04/27/17 16:23 White Blood Count 5.010^3/ul Red Blood Count 5.0410^6/ul Hemoglobin 15.1g/dl Hematocrit 45.1% Mean Corpuscular Volume 89.5fl Mean Corpuscular Hemoglobin 30.0pg Mean Corpuscular Hemoglobin Concent 33.5g/dl Red Cell Distribution Width 11.9% Platelet Count 52353^3/UL Mean Platelet Volume 9.9fl Neutrophils % 47.4% Lymphocytes % 41.3% Monocytes % 7.1% Eosinophils % 3.2% Basophils % 0.8% Nucleated Red Blood Cells % 0.0/100WBC Neutrophils # 2.410^3/ul Lymphocytes # 2.110^3/ul Monocytes # 0.410^3/ul Eosinophils # 0.210^3/ul Basophils # 0.010^3/ul Nucleated Red Blood Cells # 0.010^3/ul Prothrombin Time 13.6Sec Prothrombin Time Ratio 1.1 INR International Normalized Ratio 1.03 Activated Partial Thromboplast Time 27.0Sec Current Medications Medications (Trade) Dose Ordered Sig/Subhash Route PRN Reason Start Time Stop Time Status Last Admin Dose Admin Aspirin (Aspirin) 325 mg ONCE STAT PO 04/27/17 16:19 04/27/17 16:20 DC 04/27/17 16:29 Lidocaine 20 ml 20 ml STK-MED ONCE .ROUTE 04/27/17 16:29 04/27/17 16:30 DC Heparin Sodium/ Sodium Chloride (Heparin 1000 Units/NS (A-Line)) 1,500 ml @ ud STK-MED ONCE .ROUTE 04/27/17 16:29 04/27/17 16:30 DC Midazolam HCl (Versed) 2 mg STK-MED ONCE .ROUTE 04/27/17 16:29 04/27/17 16:30 DC Fentanyl (Sublimaze) 100 mcg STK-MED ONCE .ROUTE 04/27/17 16:29 04/27/17 16:30 DC Verapamil HCl (Verapamil) 5 mg STK-MED ONCE .ROUTE 04/27/17 16:29 04/27/17 16:30 DC Nitroglycerin (Nitroglycerin (Intracoronary)) 1,000 mcg STK-MED ONCE .ROUTE 04/27/17 16:29 04/27/17 16:30 DC Iohexol (Omnipaque 350mg/ ml) 50 ml STK-MED ONCE .ROUTE 04/27/17 16:30 04/27/17 16:31 DC Iodixanol (Visipaque Locm) 100 ml STK-MED ONCE .ROUTE 04/27/17 16:30 04/27/17 16:31 DC Procedures/MDM The patient presented to the emergency department with chest pain. My clinical evaluation and workup was to distinguish minor causes of chest pain from acute life threatening conditions such as myocardial infarction, pulmonary embolism, aortic dissection, esophageal rupture, cardiac tamponade. The patient was placed on a property assessment monitor and continuous pulse oximetry. IV access established by nursing staff. The patient was given aspirin. The patient had walked in with chest pain and an EKG done in triage at 1613 was reviewed by myself as the nurse indicated the EKG stated STEMI. Therefore the patient was immediately brought back and placed into a bed and evaluated by myself. 12 Lead EKG tracing ordered and reviewed by myself showed: Normal sinus rhythm of 65 bpm and no arrhythmia. MD interval normal. QRS duration normal. ST segment elevation in the inferior leads II, III and aVF with no worse typical changes. No ST segment depression. A repeat EKG was done at 1614 and indicated benign early repolarization. I spoke with Dr. chowdary.the disk operator and given the patient's symptoms he will immediately be taken to the Sling Operator for PCI. The patient was admitted to the hospitalist Dr. Sanders and will go to the intensive care unit in serious condition with an anticipated stay of greater than 2 midnights. Departure Diagnosis: Primary Impression: STEMI (ST elevation myocardial infarction) Involved coronary artery: unspecified coronary artery Qualified Code: I21.3 - ST elevation myocardial infarction (STEMI), unspecified artery Condition: Serious LEAH FORBES Apr 27, 2017 17:09
[2017-04-27 17:12] LABS: B-TYPE NATRIURETIC PEPTIDE 43 PG/ML (0-125)
--- NOTE | 2017-04-27 17:19 | OPR ---
Date/Time of Note Date/Time of Note DATE: 04/27/17 TIME: 17:11 Operative Report Procedure Date: Apr 27, 2017 Preoperative Diagnosis possible STEMI Postoperative Diagnosis see below Surgeon see signature line Tail Puller N/A Anesthesia Type: moderate sedation Estimated Blood Loss: minimal Transfusion none Specimen none Grafts/Implants none Complications none Procedure Description Procedure performed: 1. emergent Left heart catheterization, selective right and left coronary angiogram 2. right femoral angiogram and closure of the right femoral artery using a perclose device 3. moderate sedation for more than 30 minutes. Wire Spooler: Octavia He MD Indication:: 41-year-old gentleman who presented with chest pain diaphoretic. EKG has shown minimal abnormality concerning for possible ST elevation myocardial infarction. Code STEMI was activated in the emergency room. He was brought in for emergent cardiac catheterization to rule as significant obstructive coronary artery disease. Findin. Left main coronary artery: Is normal. 2. Left anterior descending artery: Its a large size vessel proximally and goes around the apex. It has no significant stenosis proximally, and mid LAD. 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 3. Left circumflex artery: Is nondominant. It has no significant stenosis . 4. Right coronary artery: Is a moderate-sized and tortuous dominant vessel. It has no significant stenosis . 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 5. LV pressure: 139 with LVEDP of 19; Aortic pressure by pull back is 129/72. LV gram showed ejection fraction of 60%. The coronary to venous fistula fills in to the RV eventually Written informed consent with obtained after risks benefits and alternatives discussed with the patient in detail. risks including but not limited to risk of infection vascular complications, bleeding complications, OR stroke arrhythmia renal failure at even were discussed with the patient in detail. Patient was brought into the cardiac garden labourer and placed in supine position. Right and left groin area was prepped and draped in regular sterile fashion and then he was in anesthetized using 1% lidocaine. Right femoral artery was cannulated and using modified seldinger technique a 6 Czech sheath was placed in the right femoral artery. Right femoral angiogram was performed. JL4 catheter was advanced and engaged into the left main coronary artery and angiographic view was obtained. The JR4 catheter was advanced and engaged right coronary artery angiographic view was obtained. Pigtail was advanced to engage the left ventricle hemodynamics as recorded and LV gram was performed. By pullback aortic pressure was measured Patient tolerated procedure well with no complication. Patient is to be transferred to recovery room in stable condition. contrast used: 70 cc Conclusions: No significant coronary arteries disease is seen. 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 OCTAVIA HE MD [facility] OCTAVIA HE MD Apr 27, 2017 17:19
[2017-04-27 17:25] LABS: CK-MB 0.25 ng/ml (0.0-2.4); TROPONIN-I < 0.012 ng/ml (0.00-0.12)
[2017-04-27] MEDS ORDERED: ACETAMINOPHEN 325 MG TAB PO PRN (17:30)
--- NOTE | 2017-04-27 17:52 | RADRPT ---
PROCEDURE: XR Chest. CLINICAL INDICATION: Chest pain. TECHNIQUE: Single frontal view. COMPARISON: 09/22/2016. FINDINGS: The lungs are clear. The heart size is normal. There is no pleural effusion. There is no pneumothorax. IMPRESSION: 1. Normal chest radiograph. 2. No change from 09/22/2016. RPTAT: QQ .Bart Dior MD, MD Date Time Electronically viewed and signed by .Bart Dior MD, MD on 04/27/2017 16:38 .R/
[2017-04-27 17:58] VITALS: PULSE 58
[2017-04-27 17:59] VITALS: BP 110/67; PULSE 62; RESP 18
[2017-04-27 18:02] VITALS: Ht 167.6 cm; Wt 69.5 kg
[2017-04-27] MEDS: SOD CHLORIDE 0.9% 1,000 ML IV SCH ×2 (18:21→22:19)
[2017-04-27] MEDS ORDERED: HYDROCODONE/APAP (5/325) TAB PO PRN (19:00)
[2017-04-27] MEDS ORDERED: ONDANSETRON 4 MG INJ IV PRN (19:00)
[2017-04-27 20:29] VITALS: BP 101/65; RESP 17
[2017-04-27] MEDS: DOCUSATE SODIUM 100 MG CAP PO SCH (20:36)
[2017-04-27] MEDS: FAMOTIDINE 20 MG TAB PO SCH (20:37)
[2017-04-27 20:49] VITALS: PULSE 58
--- NOTE | 2017-04-27 23:33 | HP ---
DATE OF ADMISSION: 04/27/2017 CHIEF COMPLAINT: Chest pain. HISTORY OF PRESENT ILLNESS: A 41-year-old male, with no significant past medical history, who presents with chest pain. He says it has been going off and on for the last few weeks, but became worse today, somewhat substernal in nature. It was also down in his stomach area and radiated to his low back and his chest as well. He had some nausea symptoms and some subjective fevers and chills. He had no other radiation of the pain. Denies any prior history of any strokes or heart attack. He had some dizziness symptoms, but no loss of consciousness. He has also been complaining of decreased bowel movement as well. He described it about 7 or 8/10 in intensity. When he came in to the ER, the staff became concerned about possible ST-elevation [place], as there were some minimal abnormalities on his EKG. So, the on-call neonatal pediatric nurse was called and patient was taken to the slab tripper. Luckily, there were no significant findings of any coronary artery disease or blockage noted and patient is now presently on telemetry floor. PAST MEDICAL HISTORY: As above. ALLERGIES: NO KNOWN DRUG ALLERGIES. MEDICATIONS: None. PAST SURGICAL HISTORY: He had right knee surgery in the past. SOCIAL HISTORY: Former alcohol and smoking history, quit 10 years ago. 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 PHYSICAL EXAMINATION: VITAL SIGNS: T-max 98.1, pulse 67, respirations 20, blood pressure 121/71, satting at 99 percent room air. GENERAL: Patient is lying in bed, still complaining of some mild chest pain. Family members at the bedside. No acute distress. HEENT: Pupils equal, round, react to light. Extraocular muscles intact. NECK: Supple. No thyromegaly. LUNGS: Clear to auscultation bilaterally. CARDIOVASCULAR: S1, S2 heard. No rubs, gallops. ABDOMEN: Soft, nontender, nondistended. Normal bowel sounds. No rebound or guarding. MUSCULOSKELETAL: No lower extremity edema bilaterally. NEUROLOGIC: No focal deficits. LABORATORY DATA: The CBC is completely normal. Comprehensive metabolic panel is normal. Troponin negative x1. The coags are normal. He had a chest x-ray performed, shows normal chest radiograph. ASSESSMENT AND PLAN: A 41-year-old male coming in with substernal chest pain and abdominal pain, status post left heart catheterization with no significant coronary artery disease. 1. Chest pain. Again, less likely coronary artery disease given his negative left heart cath earlier today, could be GI related as well. The patient does also have some dizziness and lightheadedness as well. So, we will admit the patient. Check TSH, A1c, lipid panel. Follow up cardiology recommendations as well. We will consider checking abdominal ultrasound as well to further evaluate and maybe consider carotid Dopplers as well given his dizziness and lightheadedness at work. 2. For gastrointestinal prophylaxis, Pepcid. Dictated By: Matt Walters MD /[email or web address]/[email or web address] /Document#: [id number]
[2017-04-28] VITALS (7 sets, daily range): BP systolic 102–112; BP diastolic 59–62; PULSE 47–64; RESP 17–19
[2017-04-28 06:41] LABS: EOSINOPHILS # 0.1 10^3/ul (0.0-0.5); EOSINOPHILS % 3.1 % (0.0-7.0); HEMATOCRIT 39.9 % (42.0-52.0); HEMOGLOBIN 13.8 g/dl (14.0-18.0); LYMPHOCYTES # 1.5 10^3/ul (0.8-2.9); LYMPHOCYTES % 35.6 % (15.0-51.0); MEAN CORPUSCULAR HEMOGLOBIN 30.8 pg (29.0-33.0); MEAN CORPUSCULAR HGB CONC 34.6 g/dl (32.0-37.0); MEAN CORPUSCULAR VOLUME 89.1 fl (82.0-101.0); MEAN PLATELET VOLUME 10.5 fl (7.4-10.4); MONOCYTE # 0.3 10^3/ul (0.3-0.9); MONOCYTES % 7.8 % (0.0-11.0); NEUTROPHIL # 2.2 10^3/ul (1.6-7.5); NEUTROPHILS % 52.5 % (39.0-77.0); PLATELET COUNT 159 10^3/UL (140-415); RED BLOOD COUNT 4.48 10^6/ul (4.70-6.10); WHITE BLOOD COUNT 4.2 10^3/ul (4.8-10.8)
[2017-04-28 07:04] LABS: CREATINE KINASE 63 IU/L (23-200)
[2017-04-28 07:17] LABS: ALBUMIN 3.5 g/dl (3.3-4.9); ALBUMIN/GLOBULIN RATIO 1.4; BILIRUBIN,INDIRECT 1.7 mg/dl (0-1.1); BILIRUBIN,TOTAL 1.7 mg/dl (0.2-1.3); CALCIUM 9.3 mg/dl (8.4-10.2); CHOL/HDL RATIO 3.2 RATIO; CREATININE 0.94 mg/dl (0.61-1.24); POTASSIUM 4.3 mmol/L (3.5-5.1)
[2017-04-28 07:29] LABS: CK-MB 0.61 ng/ml (0.0-2.4); TROPONIN-I < 0.012 ng/ml (0.00-0.12)
[2017-04-28 07:48] LABS: THYROID STIMULATING HORMONE 2.94 MIU/L (0.465-4.680)
--- NOTE | 2017-04-28 08:54 | RADRPT ---
PROCEDURE: US Abdomen and Retroperitoneum. CLINICAL INDICATION: Abdominal pain. TECHNIQUE: Multiple real-time longitudinal and transverse images were acquired of the patient's ab domen and retroperitoneum utilizing a curved array transducer. COMPARISON: CT scan of the abdomen and pelvis dated 09/25/2016. FINDINGS: The liver is normal in size and normal in echogenicity. The liver has a normal smooth surface. Ther e is no focal hepatic lesion. Color Doppler and pulsed Doppler sonography demonstrate normal antegra de flow in the portal vein. The gallbladder is normal with no stones or wall thickening. The bile ducts are normal with the common bile duct measuring 3.1 mm in diameter. The spleen is normal in size. There is no focal splenic lesion. The pancreas is not visualized due to overlying bowel gas. There is no free fluid. The right kidney measures 10.5 cm and the left kidney measures 10.3 cm. There is no renal mass. There is no hydronephrosis or calculus. The abdominal aorta is not dilated. The inferior vena cava is unremarkable. IMPRESSION: 1. Pancreas not visualized. 2. Otherwise normal ultrasound of the abdomen and retroperitoneum. RPTAT: QQ .Bart Dior MD, Date Time Electronically viewed and signed by .Bart Dior MD, on 04/28/2017 08:54 .R/
[2017-04-28] MEDS: DOCUSATE SODIUM 100 MG CAP PO SCH (08:58)
[2017-04-28] MEDS: FAMOTIDINE 20 MG TAB PO SCH (08:58)
--- NOTE | 2017-04-28 10:26 | PDOCDIS ---
Discharge Instructions CONDITION Patient Condition: Stable HOME CARE INSTRUCTIONS: Special Diet: low fat/chol ACTIVITY: Activity Restrictions: Slowly Increase Activity FOLLOW UP/APPOINTMENTS Follow-up Plan Please follow-up with regular doctor in the clinic in the next 1-2 weeks. SHARON BENJAMIN Apr 28, 2017 10:26
--- NOTE | 2017-04-28 10:32 | DS ---
Date/Time of Note Date/Time of Note DATE: 04/28/17 TIME: 10:28 Discharge Summary Admission/Discharge Info Admit Date/Time Apr 27, 2017 at 16:41 Discharge Date/Time Discharge Diagnosis 1. Chest pain. Again, less likely coronary artery disease given his negative left heart cath. Abdominal ultrasound was also negative for pathology. Patient Condition: Stable Procedures Procedure performed: 1. emergent Left heart catheterization, selective right and left coronary angiogram 2. right femoral angiogram and closure of the right femoral artery using a perclose device 3. moderate sedation for more than 30 minutes. Findin. Left main coronary artery: Is normal. 2. Left anterior descending artery: Its a large size vessel proximally and goes around the apex. It has no significant stenosis proximally, and mid LAD. 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 3. Left circumflex artery: Is nondominant. It has no significant stenosis . 4. Right coronary artery: Is a moderate-sized and tortuous dominant vessel. It has no significant stenosis . 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 5. LV pressure: 139 with LVEDP of 19; Aortic pressure by pull back is 129/72. LV gram showed ejection fraction of 60%. The coronary to venous fistula fills in to the RV eventually Conclusions: No significant coronary arteries disease is seen. 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 Hospital Course 41-year-old male, with no significant past medical history, who presents with chest pain. He says it has been going off and on for the last few weeks, but became worse today, somewhat substernal in nature. It was also down in his stomach area and radiated to his low back and his chest as well. He had some nausea symptoms and some subjective fevers and chills. He had no other radiation of the pain. Denies any prior history of any strokes or heart attack. He had some dizziness symptoms, but no loss of consciousness. He has also been complaining of decreased bowel movement as well. He described it about 7 or 8/10 in intensity. When he came in to the ER, the staff became concerned about possible ST-elevation [place], as there were some minimal abnormalities on his EKG. So, the on-call progress clerk was called and patient was taken to the label fuser tender. Luckily, there were no significant findings of any coronary artery disease or blockage noted. Patient was admitted to telemetry floor overnight, he had abdominal ultrasound performed that also did not show any signs of any GI abnormalities. Patient was able to Kate, tolerated p.o. diet, and once he is cleared by cardiology team he will be discharged home today in improved condition as his vital signs are stable labs are stable as well. Patient is given strict return precautions as well. See below for full list of discharge medications. Home Meds Active Scripts Famotidine* (Famotidine*) 20 Mg Tablet, 20 MG NGT BID for 60 Days, TAB Prov:ANIA SWIFT 09/26/16 Follow-up Plan Please follow-up with regular doctor in the clinic in the next 1-2 weeks. Primary Care Provider Ganga Ferrer Time spent on discharge: > 30 minutes Pending Labs Laboratory Tests Test 04/27/17 16:23 04/28/17 06:02 White Blood Count 5.010^3/ul (4.8-10.8) 4.210^3/ul (4.8-10.8) Red Blood Count 5.0410^6/ul (4.70-6.10) 4.4810^6/ul (4.70-6.10) Hemoglobin 15.1g/dl (14.0-18.0) 13.8g/dl (14.0-18.0) Hematocrit 45.1% (42.0-52.0) 39.9% (42.0-52.0) Mean Corpuscular Volume 89.5fl (82.0-101.0) 89.1fl (82.0-101.0) Mean Corpuscular Hemoglobin 30.0pg (29.0-33.0) 30.8pg (29.0-33.0) Mean Corpuscular Hemoglobin Concent 33.5g/dl (32.0-37.0) 34.6g/dl (32.0-37.0) Red Cell Distribution Width 11.9% (11.5-14.5) 12.0% (11.5-14.5) Platelet Count 59377^3/UL (140-415) 52316^3/UL (140-415) Mean Platelet Volume 9.9fl (7.4-10.4) 10.5fl (7.4-10.4) Neutrophils % 47.4% (39.0-77.0) 52.5% (39.0-77.0) Lymphocytes % 41.3% (15.0-51.0) 35.6% (15.0-51.0) Monocytes % 7.1% (0.0-11.0) 7.8% (0.0-11.0) Eosinophils % 3.2% (0.0-7.0) 3.1% (0.0-7.0) Basophils % 0.8% (0.0-2.0) 1.0% (0.0-2.0) Nucleated Red Blood Cells % 0.0/100WBC (0.0-0.0) 0.0/100WBC (0.0-0.0) Neutrophils # 2.410^3/ul (1.6-7.5) 2.210^3/ul (1.6-7.5) Lymphocytes # 2.110^3/ul (0.8-2.9) 1.510^3/ul (0.8-2.9) Monocytes # 0.410^3/ul (0.3-0.9) 0.310^3/ul (0.3-0.9) Eosinophils # 0.210^3/ul (0.0-0.5) 0.110^3/ul (0.0-0.5) Basophils # 0.010^3/ul (0.0-0.1) 0.010^3/ul (0.0-0.1) Nucleated Red Blood Cells # 0.010^3/ul (0.0-0.0) 0.010^3/ul (0.0-0.0) Prothrombin Time 13.6Sec (11.9-14.9) Prothrombin Time Ratio 1.1 INR International Normalized Ratio 1.03 Activated Partial Thromboplast Time 27.0Sec (25.0-35.0) Sodium Level 142mmol/L (135-144) 142mmol/L (135-144) Potassium Level 4.0mmol/L (3.5-5.1) 4.3mmol/L (3.5-5.1) Chloride Level 101mmol/L (97-110) 103mmol/L (97-110) Carbon Dioxide Level 30mmol/L (21-31) 30mmol/L (21-31) Anion Gap 15 (8-16) 13 (8-16) Blood Urea Nitrogen 10mg/dl (7-20) 10mg/dl (7-20) Creatinine 1.15mg/dl (0.61-1.24) 0.94mg/dl (0.61-1.24) Glucose Level 92mg/dl (70-220) 72mg/dl (70-220) Calcium Level 9.4mg/dl (8.4-10.2) 9.3mg/dl (8.4-10.2) Total Bilirubin 0.9mg/dl (0.2-1.3) 1.7mg/dl (0.2-1.3) Direct Bilirubin 0.00mg/dl (0.00-0.20) 0.00mg/dl (0.00-0.20) Indirect Bilirubin 0.9mg/dl (0-1.1) 1.7mg/dl (0-1.1) Aspartate Amino Transf (AST/SGOT) 23IU/L (15-46) 18IU/L (15-46) Alanine Aminotransferase (ALT/SGPT) 34IU/L (13-69) 33IU/L (13-69) Alkaline Phosphatase 58IU/L (42-121) 50IU/L (42-121) Creatine Kinase 78IU/L (23-200) 63IU/L (23-200) Creatine Kinase Index 0.3 1.0 Creatinine Kinase MB (Mass) 0.25ng/ml (0.0-2.4) 0.61ng/ml (0.0-2.4) Troponin I < 0.012ng/ml (0.00-0.12) < 0.012ng/ml (0.00-0.12) B-Type Natriuretic Peptide 43PG/ML (0-125) Total Protein 7.4g/dl (6.1-8.1) 6.0g/dl (6.1-8.1) Albumin 4.4g/dl (3.3-4.9) 3.5g/dl (3.3-4.9) Globulin 3.00g/dl (1.3-3.2) 2.50g/dl (1.3-3.2) Albumin/Globulin Ratio 1.46 1.40 Ethyl Alcohol Level < 10.0mg/dl Triglycerides Level 36mg/dl (0-149) Cholesterol Level 94mg/dl (100-200) LDL Cholesterol, Calculated 58mg/dl HDL Cholesterol 29mg/dl (27-67) Cholesterol/HDL Ratio 3.2RATIO Thyroid Stimulating Hormone (TSH) 2.940MIU/L (0.465-4.680) Free Thyroxine 1.12ng/dl (0.64-1.79) SHARON BENJAMIN Apr 28, 2017 10:32
--- NOTE | 2017-04-28 11:26 | CONS ---
Date/Time of Note Date/Time of Note DATE: 04/28/17 TIME: 11:22 Consult Date/Type/Reason Admit Date/Time Apr 27, 2017 at 16:41 Initial Consult Date 04/27/17 Type of Consultation: Interventional cardiology Ordering Provider: LEAH FORBES Subjective Cardiology follow-up progress note: Subjective: Discussed with staff and family at the bedside. Patient with no left-sided chest pain or pressure. Complains of back pain. He has no groin pain. Objective: General: no acute distress HEENT: NC/AT. pupils are equal. round. NECK: NO JVD. no stridor. CV: RRR. systolic murmur; no gallop or rubs. PULM: no wheezing or rhonchi. GI: SOFT, NT, ND, no rebound or guarding Extremity: trace B/L LE edema. no clubbing. neuro: awake and alert, OX3. Psych: Anxious but pleasant rectal: deferred Vascular: Right femoral artery with no hematoma bleeding or bruit Objective Vital Signs Date Time Temp Pulse Resp B/P Pulse Ox O2 Delivery O2 Flow Rate FiO2 04/28/17 08:09 63 04/28/17 07:59 98.5 18 104/59 98 04/27/17 17:59 Room Air Intake and Output 04/27/17 04/27/17 04/28/17 15:00 23:00 07:00 Intake Total 40 ml 400 ml Output Total 800 ml Balance 40 ml -400 ml Results/Medications Result Diagram: 04/28/17 0602 04/28/17 0602 Results 24 hrs Laboratory Tests Test 04/27/17 16:23 04/28/17 06:02 White Blood Count 5.0 # 4.2 L Red Blood Count 5.04 4.48 L Hemoglobin 15.1 13.8 L Hematocrit 45.1 39.9 L Mean Corpuscular Volume 89.5 89.1 Mean Corpuscular Hemoglobin 30.0 30.8 Mean Corpuscular Hemoglobin Concent 33.5 34.6 Red Cell Distribution Width 11.9 12.0 Platelet Count 200 159 # Mean Platelet Volume 9.9 10.5 H Neutrophils % 47.4 52.5 Lymphocytes % 41.3 35.6 Monocytes % 7.1 7.8 Eosinophils % 3.2 3.1 Basophils % 0.8 1.0 Nucleated Red Blood Cells % 0.0 0.0 Neutrophils # 2.4 2.2 Lymphocytes # 2.1 1.5 Monocytes # 0.4 0.3 Eosinophils # 0.2 0.1 Basophils # 0.0 0.0 Nucleated Red Blood Cells # 0.0 0.0 Prothrombin Time 13.6 Prothrombin Time Ratio 1.1 INR International Normalized Ratio 1.03 Activated Partial Thromboplast Time 27.0 Sodium Level 142 142 Potassium Level 4.0 4.3 Chloride Level 101 103 Carbon Dioxide Level 30 30 Anion Gap 15 13 Blood Urea Nitrogen 10 10 Creatinine 1.15 0.94 Glucose Level 92 72 Calcium Level 9.4 9.3 Total Bilirubin 0.9 1.7 H Direct Bilirubin 0.00 0.00 Indirect Bilirubin 0.9 1.7 H Aspartate Amino Transf (AST/SGOT) 23 18 Alanine Aminotransferase (ALT/SGPT) 34 33 Alkaline Phosphatase 58 50 Creatine Kinase 78 63 Creatine Kinase Index 0.3 1.0 Creatinine Kinase MB (Mass) 0.25 0.61 Troponin I < 0.012 < 0.012 B-Type Natriuretic Peptide 43 Total Protein 7.4 6.0 #L Albumin 4.4 3.5 Globulin 3.00 2.50 Albumin/Globulin Ratio 1.46 1.40 Ethyl Alcohol Level < 10.0 Triglycerides Level 36 Cholesterol Level 94 L LDL Cholesterol, Calculated 58 HDL Cholesterol 29 Cholesterol/HDL Ratio 3.2 Thyroid Stimulating Hormone (TSH) 2.940 Free Thyroxine 1.12 Medications Current Medications Miscellaneous Information (* Miscellaneous Pharmacy Order) Hold all Metformin ... ONCE XX ; Start 04/27/17 at 17:30; Stop 04/29/17 at 17:29 Acetaminophen (Tylenol Tab) 650 mg Q4H PRN PO NON-CARDIAC PAIN LEVEL 1-3; Start 04/27/17 at 17:30 Docusate Sodium (Colace) 100 mg BID PO Last administered on 04/28/17 08:58; Admin Dose 100 MG; Start 04/27/17 at 21:00 Famotidine (Pepcid) 20 mg Q12 PO Last administered on 04/28/17 08:58; Admin Dose 20 MG; Start 04/27/17 at 21:00 Acetaminophen/ Hydrocodone Bitart ([place] (5/325)) 1 tab Q6H PRN PO PAIN LEVEL 8 -10 Last administered on 12/23/17at 18:54; Admin Dose 1 TAB; Start 04/27/17 at 19:00 Ondansetron HCl (Zofran Inj) 4 mg Q6H PRN IV NAUSEA AND/OR VOMITING; Start at 19:00 Assessment/Plan Chief Complaint/Hosp Course Normal EKG with questionable ST elevation myocardial infarction back pain 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 Significant of which is not clear to me at this point. ] Recommendation No emergent cardiac workup is needed at this point. Pain management as per internal medicine. 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 However this is not available in our facility to be done and is not an emergency situation anyway. Thank you OCTAVIA FAYE MD [facility] Problems: OCTAVIA FAYE MD Apr 28, 2017 11:26
--- NOTE | 2017-04-30 15:37 | RADRPT ---
Vent Rate: 53 bpm RR Interval: 0 msec [place] Interval: 124 msec QRS Duration: 82 msec QT Interval: 410 msec QTC Interval: 384 msec P-R-T [place]: 25 - 74 - 63 degrees Sinus bradycardia Early repolarization Otherwise normal ECG Electronically Signed By: Kelvin Bobby [id number]
== END 2017-04-28 13:06 | disposition home or self-care (01) | DRG 287 ==
LOC: E/R 16:01 → TEL 16:41
PROVIDERS: ADMIT Internal Medicine; ATTEND Internal Medicine
PROC: B211YZZ Fluoroscopy of Multiple Coronary Arteries using Other Contrast (ICD-10-PCS; 2017-04-27)
PROC: B215YZZ Fluoroscopy of Left Heart using Other Contrast (ICD-10-PCS; 2017-04-27)
PROC: 4A023N7 Measurement of Cardiac Sampling and Pressure, Left Heart, Percutaneous Approach (ICD-10-PCS; principal; 2017-04-27 16:30)
DX: R07.9 Chest pain, unspecified (principal); Q24.5 Malformation of coronary vessels; I10 Essential (primary) hypertension; Z87.891 Personal history of nicotine dependence
CPT/HCPCS: 71010; 76700; 80053; 80061; 80306; 80307; 82550; 82553; 83880; 84439; 84443; 84484; 85025; 85610; 85730; 93005; 93458; C1760; C1887; C1894; J1644; J2250; J3010; J7030; Q9967